=== PATIENT | female | born 1945 | race Caucasian/White ===

== ENCOUNTER 2020-10-16 11:13 | Inpatient (IN) | payer MEDICARE, OTHER ==
[2020-10-16] MEDS ORDERED: DUONEB 0.5-3 MG/3 ml Neb IH ONE ×2 (11:36→11:48)
[2020-10-16] MEDS ORDERED: PULMICORT 0.5 MG/2 ML RESPULES IH STA (11:36)
[2020-10-16] MEDS ORDERED: solu-MEDROL 125 MG IV ONE (11:36)
--- NOTE | 2020-10-16 11:36 | ERPHSYRPT ---
- History of Present Illness Time Seen by Provider: 10/16/20 11:33 Source: patient Exam Limitations: no limitations Patient Subjective Stated Complaint: PT states "[facility] I have COPD and I have been having a hard time breathing for a week. I am coughing, my throat hurts, I did have an incident where draino fumes filled the house and that did not help." Triage Nursing Assessment: Pt presented alert and oriented X 3, skin pwd. Pt tachypniec, diminished lower right lobe, pt has intermittant cough, scant production, able to speak in clear full sentences. Physician History: PT states "[facility]. I have COPD and I have been having a hard time breathing for a week. I am coughing, my throat hurts, I did have an incident where draino fumes filled the house and that did not help." Patient has fever chills shortness of breath for last 2 to 3 weeks has been treated with antibiotic as an outpatient as well as prednisone but without any help. Patient is fully vaccinated with Covid vaccine 2 months ago. Timing/Duration: week(s) Severity of Dyspnea-Max: moderate Severity of Dyspnea-Current: moderate Associated Symptoms: cough, fever, wheezing, weakness, productive cough, No hemoptysis Allergies/Adverse Reactions: No Known Drug Allergies Allergy (Verified 10/16/20 11:25) Home Medications: Albuterol/Ipratropium 3ml Neb* [DUONEB 0.5-3 MG/3 ml Neb] 3 ml IH DAILY 10/16/20 [History] Budesonide/Formoterol Fumarate [Symbicort 80-4.5 Mcg Inhaler] 10.2 gm IH DAILY 10/16/20 [History] Hydrocodone/Acetaminophen [Hydrocodone-Acetamin 10-325 mg] 1 each PO QID PRN 10/16/20 [History] Levothyroxine Sodium [Levothyroxine] 88 mcg PO DAILY 10/16/20 [History] Hx Tetanus, Diphtheria Vaccination/Date Given: Yes Hx Influenza Vaccination/Date Given: Yes Hx Pneumococcal Vaccination/Date Given: Yes Immunizations Up to Date: Yes Travel Risk - International Travel Have you traveled outside of the country in past 3 weeks: No - Coronavirus Screening Are you exhibiting any of the following symptoms?: Yes Symptoms: Cough: New Onset, Shortness of Breath Close contact with a COVID-19 positive Pt in past 14-21 Days: No - Vaccine Status Have you recieved a Covid-19 vaccination: Yes [employer]: Moderna - Vaccination Dates Date of 2cond Vaccination (if applicable): 08/03/2020 - Review of Systems Constitutional: Fever, No Chills Eyes: No Symptoms Ears, Nose, & Throat: No Symptoms Respiratory: Cough, Dyspnea, Dyspnea on Exertion (BOSCH), Wheezing Cardiac: No Chest Pain, No Edema, No Syncope Abdominal/Gastrointestinal: No Abdominal Pain, No Nausea, No Vomiting, No Diarrhea Genitourinary Symptoms: No Dysuria Musculoskeletal: No Back Pain, No Neck Pain Skin: No Rash Neurological: No Dizziness, No Focal Weakness, No Sensory Changes Psychological: No Symptoms Endocrine: No Symptoms All Other Systems: Reviewed and Negative - Past Medical History Pertinent Past Medical History: Yes Neurological History: No Pertinent History ENT History: No Pertinent History Cardiac History: No Pertinent History Respiratory History: COPD Endocrine Medical History: Hypothyroidism Musculoskeletal History: Arthritis GI Medical History: No Pertinent History History: No Pertinent History Psycho-Social History: Anxiety Female Reproductive Disorders: No Pertinent History - Past Surgical History Past Surgical History: Yes Other Surgical History: left hernia. 2 c section - Social History Smoking Status: Former smoker Exposure to second hand smoke: No Drug Use: none Patient Lives Alone: Yes - Female History Hx Now: No - Nursing Vital Signs Nursing Vital Signs: Initial Vital Signs Temperature 98.4 F 10/16/20 11:14 Pulse Rate 112 H 10/16/20 11:14 Respiratory Rate 28 H 10/16/20 11:14 Blood Pressure 218/115 10/16/20 11:14 O2 Sat by Pulse Oximetry 94 L 10/16/20 11:14 Pain Scale Pain Intensity 4 - Physical Exam General Appearance: moderate distress, alert Eye Exam: PERRL/EOMI Neck Exam: normal inspection, supple Respiratory Exam: diminished breath sounds, accessory muscle use, crackles /rales, rhonchi, wheezing Cardiovascular/Chest Exam: normal heart sounds, regular rate/rhythm Abdominal/Gastrointestinal Exam: soft, No tenderness, No distention, No mass Extremity Exam: non-tender, normal range of motion, normal inspection, no calf tenderness, no pedal edema Neurologic Exam: alert, oriented x 3, cooperative, log chipper II-XII nml as tested, sensation nml, No motor deficits Skin Exam: normal color, warm, No dry SpO2 Interpretation: borderline oxygenation SpO2: 94 O2 Delivery: Nasal Cannula - Course Nursing assessment & vital signs reviewed: Yes - Radiology Exams Chest X-ray Interpretation: Reviewed by me Ordered Tests: Active Orders 24 hr Category Date Time Status EKG-ER Only STAT Care 10/16/20 11:36 Active IV Insertion STAT Care 10/16/20 11:36 Active Oxygen-ED Only Nasal Cannula 3 lpm Care 10/16/20 11:36 Active CHEST 2 VIEWS (PA AND LAT) Stat Exams 10/16/20 11:37 Taken ARTERIAL BLOOD GASES Stat Lab 10/16/20 11:55 Completed BLOOD CULTURE Stat Lab 10/16/20 11:50 Received CBC W DIFF Stat Lab 10/16/20 11:50 Completed CMP Stat Lab 10/16/20 11:50 Completed D-DIMER QUANTITATIVE Stat Lab 10/16/20 11:50 Completed Lactic Acid Stat Lab 10/16/20 11:55 Completed MAGNESIUM Stat Lab 10/16/20 11:50 Completed NT PRO BNP Stat Lab 10/16/20 11:50 Completed TROPONIN Stat Lab 10/16/20 11:50 Completed UA W/RFX UR CULTURE Stat Lab 10/16/20 12:37 Completed Respiratory Therapy Assessment DAILY RT 10/16/20 12:04 Active Medication Summary Generic Name Dose Route Start Last Admin Trade Name Freq PRN Reason Stop Dose Admin Sodium Chloride 1,000 mls @ 50 mls/hr 10/16/20 11:45 10/16/20 12:11 Sodium Chloride 0.9% 1000 Ml IV 11/15/20 11:44 50 mls/hr .Q20H YULISSA Administration Discontinued Medications Generic Name Dose Route Start Last Admin Trade Name Freq PRN Reason Stop Dose Admin Albuterol/Ipratropium 3 ml 10/16/20 11:36 10/16/20 12:00 Duoneb 0.5-3 Mg/3 Ml Neb IH 10/16/20 11:37 3 ml STAT ONE Administration Albuterol/Ipratropium Confirm 10/16/20 11:48 Duoneb 0.5-3 Mg/3 Ml Neb Administered 10/16/20 11:49 Dose 3 ml IH .STK-MED ONE Budesonide 0.5 mg 10/16/20 11:36 10/16/20 12:00 Pulmicort 0.5 Mg/2 Ml Respules IH 10/16/20 11:37 0.5 mg 1XONLY STA Administration Methylprednisolone Sodium Succinate 80 mg 10/16/20 11:36 10/16/20 12:10 Solu-Medrol 125 Mg IV 10/16/20 11:37 80 mg STAT ONE Administration Methylprednisolone Sodium Succinate Confirm 10/16/20 12:10 Solu-Medrol 125 Mg Administered 10/16/20 12:11 Dose 125 mg .ROUTE .STK-MED ONE Lab/Rad Data: Laboratory Result Diagrams 10/16/20 11:50 10/16/20 11:50 Laboratory Results 10/16/20 10/16/20 10/16/20 Range/Units 12:37 11:55 11:50 WBC (4.0-10.5) K/mm3 RBC (4.1-5.4) M/mm3 Hgb (12.0-16.0) gm/dl Hct (35-47) % MCV (78-100) fl MCH (26-32) pg MCHC (32-36) g/dl RDW (11.5-14.0) % Plt Count (150-450) K/mm3 MPV (7.5-11.0) fl Gran % (36.0-66.0) % Eos # (Auto) (0-0.5) Absolute Lymphs (auto) (1.0-4.6) Absolute Monos (auto) (0.0-1.3) Lymphocytes % (24.0-44.0) % Monocytes % (0.0-12.0) % Eosinophils % (0.00-5.0) % Basophils % (0.0-0.4) % Absolute Granulocytes (1.4-6.9) Basophils # (0-0.4) D-Dimer 216 (215-500) ng/mL Puncture Site LEFT RADIAL pCO2 33 L (35-45) mmHg pO2 72 L (75-100) mmHg Base Excess 2.9 H (-2.0-2.0) O2 Saturation 94.0 (94-100) g/dF ABG pH 7.50 H (7.35-7.45) ABG HCO3 25.7 (22-28) ABG O2 Sat (Measured) 96.9 (95-100) % Jerel Test YES A-a Gradient 86 a/A Ratio 0.46 Hemoglobin 15.2 Carboxyhemoglobin 1.7 (0.0-6.9) % THgb Methemoglobin 1.3 L (1.4-1.5) % Temperature 37.0 C POC O2 Flow Rate 28 % Sodium (137-145) mmol/L Potassium 3.7 (3.5-5.1) mmol/L Chloride (98-107) mmol/L Carbon Dioxide (22-30) mmol/L Anion Gap (5-15) MEQ/L BUN (7-17) mg/dL Creatinine (0.52-1.04) mg/dL Estimated GFR ML/MIN Glucose (74-106) mg/dL Lactic Acid 0.8 (0.4-2.0) Calcium (8.4-10.2) mg/dL Magnesium (1.6-2.3) mg/dL Total Bilirubin (0.2-1.3) mg/dL AST (14-36) U/L ALT (0-35) U/L Alkaline Phosphatase (38-126) U/L Troponin I (0.000-0.034) ng/mL NT-Pro-B Natriuret Pep (0-1800) pg/mL Serum Total Protein (6.3-8.2) g/dL Albumin (3.5-5.0) g/dL Urine Color STRAW (YELLOW) Urine Appearance CLEAR (CLEAR) Urine pH 7.0 (5-6) Ur Specific [place] 1.005 (1.005-1.025) Urine Protein NEGATIVE (Negative) Urine Ketones TRACE (NEGATIVE) Urine Blood NEGATIVE (0-5) Vinny/ul Urine Nitrite NEGATIVE (NEGATIVE) Urine Bilirubin NEGATIVE (NEGATIVE) Urine Urobilinogen NEGATIVE (0-1) mg/dL Ur Leukocyte Esterase NEGATIVE (NEGATIVE) Urine WBC (Auto) NONE (0-5) /HPF Urine RBC (Auto) NONE (0-2) /HPF U Epithel Cells (Auto) NONE (FEW) /HPF Urine Bacteria (Auto) NONE (NEGATIVE) /HPF Urine Culture Reflexed NO (NO) Urine Glucose NEGATIVE (NEGATIVE) mg/dL 10/16/20 10/16/20 Range/Units 11:50 11:50 WBC 6.9 (4.0-10.5) K/mm3 RBC 4.87 (4.1-5.4) M/mm3 Hgb 14.5 (12.0-16.0) gm/dl Hct 45.2 (35-47) % MCV 92.8 (78-100) fl MCH 29.8 (26-32) pg MCHC 32.1 (32-36) g/dl RDW 13.0 (11.5-14.0) % Plt Count 265 (150-450) K/mm3 MPV 8.8 (7.5-11.0) fl Gran % 62.8 (36.0-66.0) % Eos # (Auto) 0.20 (0-0.5) Absolute Lymphs (auto) 1.79 (1.0-4.6) Absolute Monos (auto) 0.55 (0.0-1.3) Lymphocytes % 26.0 (24.0-44.0) % Monocytes % 8.0 (0.0-12.0) % Eosinophils % 2.9 (0.00-5.0) % Basophils % 0.3 (0.0-0.4) % Absolute Granulocytes 4.32 (1.4-6.9) Basophils # 0.02 (0-0.4) D-Dimer (215-500) ng/mL Puncture Site pCO2 (35-45) mmHg pO2 (75-100) mmHg Base Excess (-2.0-2.0) O2 Saturation (94-100) g/dF ABG pH (7.35-7.45) ABG HCO3 (22-28) ABG O2 Sat (Measured) (95-100) % Jerel Test A-a Gradient a/A Ratio Hemoglobin Carboxyhemoglobin (0.0-6.9) % THgb Methemoglobin (1.4-1.5) % Temperature C POC O2 Flow Rate % Sodium 140 (137-145) mmol/L Potassium 3.8 (3.5-5.1) mmol/L Chloride 102 (98-107) mmol/L Carbon Dioxide 26 (22-30) mmol/L Anion Gap 15.9 H (5-15) MEQ/L BUN 11 (7-17) mg/dL Creatinine 0.54 (0.52-1.04) mg/dL Estimated GFR > 60.0 ML/MIN Glucose 97 (74-106) mg/dL Lactic Acid (0.4-2.0) Calcium 9.7 (8.4-10.2) mg/dL Magnesium 2.1 (1.6-2.3) mg/dL Total Bilirubin 0.40 (0.2-1.3) mg/dL AST 38 H (14-36) U/L ALT 35 (0-35) U/L Alkaline Phosphatase 78 (38-126) U/L Troponin I < 0.012 (0.000-0.034) ng/mL NT-Pro-B Natriuret Pep 123 (0-1800) pg/mL Serum Total Protein 7.1 (6.3-8.2) g/dL Albumin 4.6 (3.5-5.0) g/dL Urine Color (YELLOW) Urine Appearance (CLEAR) Urine pH (5-6) Ur Specific [place] (1.005-1.025) Urine Protein (Negative) Urine Ketones (NEGATIVE) Urine Blood (0-5) Vinny/ul Urine Nitrite (NEGATIVE) Urine Bilirubin (NEGATIVE) Urine Urobilinogen (0-1) mg/dL Ur Leukocyte Esterase (NEGATIVE) Urine WBC (Auto) (0-5) /HPF Urine RBC (Auto) (0-2) /HPF U Epithel Cells (Auto) (FEW) /HPF Urine Bacteria (Auto) (NEGATIVE) /HPF Urine Culture Reflexed (NO) Urine Glucose (NEGATIVE) mg/dL - Progress Progress: re-examined, unchanged Air Movement: fair Blood Culture(s) Obtained: Yes Antibiotics given: Yes Discussed with : Farshad Will see patient in: hospital (observation) Counseled pt/family regarding: lab results, diagnosis, need for follow-up, rad results - Departure Departure Disposition: Observation Clinical Impression: COPD with exacerbation Condition: Fair Critical Care Time: Yes Critical Care Time(excluding separately billable procedures): Critical 30-74 mins Referrals: HANS CABRAL [Primary Care Provider] - Instructions: Chronic Obstructive Pulmonary Disease
[2020-10-16] MEDS ORDERED: PULMICORT 0.5 MG/2 ML RESPULES IH ONE (11:44)
[2020-10-16] MEDS ORDERED: Sodium Chloride 0.9% 1000 ML 1,000 ML IV SCH (11:45)
[2020-10-16] MEDS ORDERED: solu-MEDROL 125 MG ONE (12:10)
[2020-10-16 12:11] LABS: A-aADO2 86; ABG HEMOGLOBIN 15.2; ABG POTASSIUM 3.7 (3.5-5.1); ABG SITE LEFT RADIAL; ALLEN TEST OK? YES; ARTERIAL BLD GAS O2 SATURATION 96.9 % (95-100); ARTERIAL BLOOD GAS BASE EXCESS 2.9 (-2.0-2.0); ARTERIAL BLOOD GAS FIO2 28 %; ARTERIAL BLOOD GAS PCO2 33 mmHg (35-45); ARTERIAL BLOOD GAS PO2 72 mmHg (75-100); CARBOXYHEMOGLOBIN 1.7 % THgb (0.0-6.9); HCO3- 25.7 (22-28); Lactic Acid 0.8 (0.4-2.0); Methhemoglobin 1.3 % (1.4-1.5)
[2020-10-16 12:11] LABS: Absolute Neutrophil Ct (ANC) 4.32 (1.4-6.9); BASOPHIL % 0.3 % (0.0-0.4); Basophil (Absolute #) 0.02 (0-0.4); Eosinophil % 2.9 % (0.00-5.0); Hematocrit 45.2 % (35-47); Hemoglobin 14.5 gm/dl (12.0-16.0); Lymphocyte (Absolute #) 1.79 (1.0-4.6); Mean Cell Volume 92.8 fl (78-100); Mean Corpuscular Hemoglobin 29.8 pg (26-32); Mean Corpuscular Hgb Concent. 32.1 g/dl (32-36); Mean Platelet Volume 8.8 fl (7.5-11.0); Monocyte (Absolute #) 0.55 (0.0-1.3); Neutrophil % 62.8 % (36.0-66.0); Platelet Count 265 K/mm3 (150-450); Red Blood Count 4.87 M/mm3 (4.1-5.4); White Blood Count 6.9 K/mm3 (4.0-10.5)
[2020-10-16 12:30] LABS: ALBUMIN 4.6 g/dL (3.5-5.0); ALKALINE PHOSPHATASE 78 U/L (38-126); ANION GAP 15.9 MEQ/L (5-15); BLOOD UREA NITROGEN 11 mg/dL (7-17); CHLORIDE 102 mmol/L (98-107); Calcium 9.7 mg/dL (8.4-10.2); Carbon Dioxide 26 mmol/L (22-30); Creatinine 1 0.54 mg/dL (0.52-1.04); EST GLOMERULAR FILTRATION RATE > 60.0 ML/MIN; Glucose 97 mg/dL (74-106); MAGNESIUM 2.1 mg/dL (1.6-2.3); NT PRO BNP 123 pg/mL (0-1800); Potassium 3.8 mmol/L (3.5-5.1); SGOT/AST 38 U/L (14-36); SGPT/ALT 35 U/L (0-35); SODIUM 140 mmol/L (137-145); TROPONIN < 0.012 ng/mL (0.000-0.034); Total Protein 7.1 g/dL (6.3-8.2)
[2020-10-16 12:54] LABS: Appearance CLEAR (CLEAR); Bilirubin NEGATIVE (NEGATIVE); Blood NEGATIVE Ery/ul (0-5); Glucose NEGATIVE (NEGATIVE); Ketones TRACE (NEGATIVE); Leukocyte Esterase NEGATIVE (NEGATIVE); Nitrite NEGATIVE (NEGATIVE); Protein,Urine Dip NEGATIVE (Negative); Specific Gravity 1.005 (1.005-1.025); Urobilinogen NEGATIVE mg/dL (0-1)
[2020-10-16] MEDS ORDERED: Levofloxacin 500MG/100ML D5W 500 MG/100 ML BAG IV STA (13:11)
[2020-10-16] MEDS ORDERED: Levofloxacin 500MG/100ML D5W 500 MG/100 ML BAG IV ONE (13:22)
[2020-10-16 14:40] LABS: INFLUENZA A NEGATIVE (NEGATIVE); INFLUENZA B NEGATIVE (NEGATIVE); RESPIRATORY SYNCTIAL VIRUS NEGATIVE (Negative)
[2020-10-16] MEDS ORDERED: TYLENOL 325 MG PO PRN (15:16)
[2020-10-16] MEDS ORDERED: solu-MEDROL 125 MG IV SCH (15:16)
[2020-10-16] MEDS ORDERED: PROVENTIL 2.5 MG/3 ML NEB IH PRN (15:20)
[2020-10-16] MEDS: Sodium Chloride 0.9% 1000 ML 1,000 ML IV SCH ×2 (15:21→21:10)
[2020-10-16] MEDS: HYDROCODONE-CHLORPHEN ER SUSP PO PRN (15:52)
[2020-10-16] MEDS ORDERED: ENOXAPARIN SODIUM SQ ONE (16:10)
[2020-10-16] MEDS: ENOXAPARIN SODIUM SQ SCH (16:11)
[2020-10-16] MEDS ORDERED: PROTONIX 40 MG IV IV ONE (17:03)
[2020-10-16] MEDS: solu-MEDROL 125 MG IV SCH ×2 (17:05→23:58)
[2020-10-16] MEDS: PROTONIX 40 MG IV IV SCH (17:05)
[2020-10-16] MEDS: Advair Hfa 230/21 Mcg COMMON CANISTER IH SCH (17:14)
[2020-10-16] MEDS: PULMICORT 0.5 MG/2 ML RESPULES IH SCH (17:14)
[2020-10-16] MEDS: DUONEB 0.5-3 MG/3 ml Neb IH SCH (17:14)
--- NOTE | 2020-10-16 19:26 | XRAY ---
Indication: Short of breath. Comparison: None PA/lateral chest demonstrates COPD and calcified granulomas. No infiltrate, consolidation, or large effusion. Heart and mediastinal structures within normal limits. Bony thorax intact with mild osteopenia and minimal degenerative changes. Impression: Nonacute chest with chronic features.
[2020-10-16] MEDS: HYDROCODONE-ACETAMIN 10-325 MG PO PRN (21:14)
[2020-10-17] MEDS: DUONEB 0.5-3 MG/3 ml Neb IH SCH ×4 (02:08→19:52)
[2020-10-17 06:07] LABS: Absolute Neutrophil Ct (ANC) 5.25 (1.4-6.9); Basophil (Absolute #) 0 (0-0.4); Eosinophil (Absolute #) 0 (0-0.5); Hemoglobin 13.2 gm/dl (12.0-16.0); Lymphocyte (Absolute #) 0.81 (1.0-4.6); Mean Cell Volume 92.6 fl (78-100); Mean Corpuscular Hemoglobin 29.8 pg (26-32); Mean Corpuscular Hgb Concent. 32.2 g/dl (32-36); Monocyte (Absolute #) 0.17 (0.0-1.3); Monocytes % 2.7 % (0.0-12.0); Neutrophil % 84.3 % (36.0-66.0); Platelet Count 262 K/mm3 (150-450); Red Blood Count 4.43 M/mm3 (4.1-5.4); Red Cell Distribution Width 12.5 % (11.5-14.0); White Blood Count 6.2 K/mm3 (4.0-10.5)
[2020-10-17] MEDS: solu-MEDROL 125 MG IV SCH ×3 (06:17→17:08)
[2020-10-17] MEDS: SYNTHROID 88 MCG PO SCH (06:18)
[2020-10-17 06:22] LABS: BLOOD UREA NITROGEN 14 mg/dL (7-17); CHLORIDE 105 mmol/L (98-107); Calcium 9.3 mg/dL (8.4-10.2); Carbon Dioxide 25 mmol/L (22-30); Creatinine 1 0.45 mg/dL (0.52-1.04); EST GLOMERULAR FILTRATION RATE > 60.0 ML/MIN; Glucose 167 mg/dL (74-106); Potassium 3.8 mmol/L (3.5-5.1); SODIUM 138 mmol/L (137-145)
[2020-10-17] MEDS: Advair Hfa 230/21 Mcg COMMON CANISTER IH SCH ×2 (06:46→19:52)
[2020-10-17] MEDS: PULMICORT 0.5 MG/2 ML RESPULES IH SCH ×2 (06:46→19:52)
[2020-10-17] MEDS: HYDROCODONE-ACETAMIN 10-325 MG PO PRN ×3 (07:12→19:50)
--- NOTE | 2020-10-17 07:38 | PCM.HP ---
History of Present Illness - Chief Complaint Chief Complaint: COPD exacerbation. failed OP treatment History of Present Illness: is a 75 year old female with a history of copd, she has had cough and shortness of breath for the last week, mild sputum production, has been treated as outpatient with no improvement, [facility] to [facility] yesterday and was directed to the ER. - Review of Systems Constitutional: No Fever, No Chills Respiratory: Cough, Short Of Breath, Wheezing Cardiac: No Chest Pain, No Edema, No Syncope Abdominal/Gastrointestinal: No Abdominal Pain, No Nausea, No Vomiting, No Diarrhea All Other Systems: Reviewed and Negative Medications & Allergies Home Medications: Home Medication List Albuterol/Ipratropium 3ml Neb* [DUONEB 0.5-3 MG/3 ml Neb] 3 ml IH DAILY 10/16/20 [History Confirmed 10/16/20] Budesonide/Formoterol Fumarate [Symbicort 80-4.5 Mcg Inhaler] 10.2 gm IH DAILY 10/16/20 [History Confirmed 10/16/20] Hydrocodone/Acetaminophen [Hydrocodone-Acetamin 10-325 mg] 1 each PO QID PRN 10/16/20 [History Confirmed 10/16/20] Levothyroxine Sodium [Levothyroxine] 88 mcg PO DAILY 10/16/20 [History Confirmed 10/16/20] Allergies/Adverse Reactions: Allergies Allergy/AdvReac Type Severity Reaction Status Date / Time No Known Drug Allergies Allergy Verified 10/16/20 11:25 - Past Medical History Past Medical History: Yes Neurological History: No Pertinent History ENT History: No Pertinent History Cardiac History: No Pertinent History Respiratory History: COPD Endocrine Medical History: Hypothyroidism Musculoskelatal History: Arthritis GI Medical History: No Pertinent History History: No Pertinent History Pyscho-Social History: Anxiety Reproductive Disorders: No Pertinent History - Female History Are you now?: No - Past Surgical History Past Surgical History: Yes Other Surgical History: left hernia. 2 c section - Social History Smoking Status: Never smoker Exposure to second hand smoke: No Alcohol: Daily Drug Use: none - Physical Exam Vital Signs: Vital Signs - 24 hr Temp Pulse Resp BP Pulse Ox 10/17/20 06:51 82 16 98 10/17/20 06:50 97.9 F 84 16 158/71 98 10/17/20 03:39 97.8 F 90 18 160/77 96 10/17/20 02:08 80 18 96 10/16/20 23:55 97.8 F 94 H 20 144/67 92 L 10/16/20 19:42 97.8 F 95 H 20 141/65 93 L 10/16/20 17:15 80 20 95 10/16/20 16:44 83 21 133/62 93 L 10/16/20 15:38 84 20 92 L 10/16/20 15:22 98.1 F 88 18 185/95 93 L 10/16/20 15:08 94 H 18 93 L 10/16/20 15:07 98.7 F 75 22 158/72 93 L 10/16/20 14:14 98.0 F 75 22 162/88 96 10/16/20 13:11 94 L 10/16/20 12:21 78 16 171/91 93 L 10/16/20 12:04 80 24 94 L 10/16/20 11:14 98.4 F 112 H 28 H 218/115 93 L Oxygen-Last 24 hours Oxygen Flowrate (L/min)-RT 2 General Appearance: no apparent distress Neurologic Exam: alert, oriented x 3, cooperative Respiratory Exam: diminished breath sounds, wheezing Cardiovascular Exam: regular rate/rhythm, normal heart sounds, normal peripheral pulses Gastrointestinal/Abdomen Exam: soft, normal bowel sounds, No tenderness, No mass Extremity Exam: normal inspection, normal range of motion, pelvis stable Skin Exam: normal color, warm, dry, No rash Results - Labs Lab/Micro Results: Lab Results-Last 24 Hours 10/16/20 10/16/20 10/16/20 Range/Units 11:50 11:50 11:50 WBC 6.9 (4.0-10.5) K/mm3 RBC 4.87 (4.1-5.4) M/mm3 Hgb 14.5 (12.0-16.0) gm/dl Hct 45.2 (35-47) % MCV 92.8 (78-100) fl MCH 29.8 (26-32) pg MCHC 32.1 (32-36) g/dl RDW 13.0 (11.5-14.0) % Plt Count 265 (150-450) K/mm3 MPV 8.8 (7.5-11.0) fl Gran % 62.8 (36.0-66.0) % Eos # (Auto) 0.20 (0-0.5) Absolute Lymphs (auto) 1.79 (1.0-4.6) Absolute Monos (auto) 0.55 (0.0-1.3) Lymphocytes % 26.0 (24.0-44.0) % Monocytes % 8.0 (0.0-12.0) % Eosinophils % 2.9 (0.00-5.0) % Basophils % 0.3 (0.0-0.4) % Absolute Granulocytes 4.32 (1.4-6.9) Basophils # 0.02 (0-0.4) D-Dimer 216 (215-500) ng/mL Puncture Site pCO2 (35-45) mmHg pO2 (75-100) mmHg Base Excess (-2.0-2.0) O2 Saturation (94-100) g/dF ABG pH (7.35-7.45) ABG HCO3 (22-28) ABG O2 Sat (Measured) (95-100) % Jerel Test A-a Gradient a/A Ratio Hemoglobin Carboxyhemoglobin (0.0-6.9) % THgb Methemoglobin (1.4-1.5) % Temperature C POC O2 Flow Rate % Sodium 140 (137-145) mmol/L Potassium 3.8 (3.5-5.1) mmol/L Chloride 102 (98-107) mmol/L Carbon Dioxide 26 (22-30) mmol/L Anion Gap 15.9 H (5-15) MEQ/L BUN 11 (7-17) mg/dL Creatinine 0.54 (0.52-1.04) mg/dL Estimated GFR > 60.0 ML/MIN Glucose 97 (74-106) mg/dL Lactic Acid (0.4-2.0) Calcium 9.7 (8.4-10.2) mg/dL Magnesium 2.1 (1.6-2.3) mg/dL Total Bilirubin 0.40 (0.2-1.3) mg/dL AST 38 H (14-36) U/L ALT 35 (0-35) U/L Alkaline Phosphatase 78 (38-126) U/L Troponin I < 0.012 (0.000-0.034) ng/mL NT-Pro-B Natriuret Pep 123 (0-1800) pg/mL Serum Total Protein 7.1 (6.3-8.2) g/dL Albumin 4.6 (3.5-5.0) g/dL Urine Color (YELLOW) Urine Appearance (CLEAR) Urine pH (5-6) Ur Specific [place] (1.005-1.025) Urine Protein (Negative) Urine Ketones (NEGATIVE) Urine Blood (0-5) Vinny/ul Urine Nitrite (NEGATIVE) Urine Bilirubin (NEGATIVE) Urine Urobilinogen (0-1) mg/dL Ur Leukocyte Esterase (NEGATIVE) Urine WBC (Auto) (0-5) /HPF Urine RBC (Auto) (0-2) /HPF U Epithel Cells (Auto) (FEW) /HPF Urine Bacteria (Auto) (NEGATIVE) /HPF Urine Culture Reflexed (NO) Urine Glucose (NEGATIVE) mg/dL Influenza Type A Ag (NEGATIVE) Influenza Type B Ag (NEGATIVE) RSV (PCR) (Negative) SARS-CoV-2 (PCR) (NEGATIVE) 10/16/20 10/16/20 10/16/20 Range/Units 11:55 12:37 14:00 WBC (4.0-10.5) K/mm3 RBC (4.1-5.4) M/mm3 Hgb (12.0-16.0) gm/dl Hct (35-47) % MCV (78-100) fl MCH (26-32) pg MCHC (32-36) g/dl RDW (11.5-14.0) % Plt Count (150-450) K/mm3 MPV (7.5-11.0) fl Gran % (36.0-66.0) % Eos # (Auto) (0-0.5) Absolute Lymphs (auto) (1.0-4.6) Absolute Monos (auto) (0.0-1.3) Lymphocytes % (24.0-44.0) % Monocytes % (0.0-12.0) % Eosinophils % (0.00-5.0) % Basophils % (0.0-0.4) % Absolute Granulocytes (1.4-6.9) Basophils # (0-0.4) D-Dimer (215-500) ng/mL Puncture Site LEFT RADIAL pCO2 33 L (35-45) mmHg pO2 72 L (75-100) mmHg Base Excess 2.9 H (-2.0-2.0) O2 Saturation 94.0 (94-100) g/dF ABG pH 7.50 H (7.35-7.45) ABG HCO3 25.7 (22-28) ABG O2 Sat (Measured) 96.9 (95-100) % Jerel Test YES A-a Gradient 86 a/A Ratio 0.46 Hemoglobin 15.2 Carboxyhemoglobin 1.7 (0.0-6.9) % THgb Methemoglobin 1.3 L (1.4-1.5) % Temperature 37.0 C POC O2 Flow Rate 28 % Sodium (137-145) mmol/L Potassium 3.7 (3.5-5.1) mmol/L Chloride (98-107) mmol/L Carbon Dioxide (22-30) mmol/L Anion Gap (5-15) MEQ/L BUN (7-17) mg/dL Creatinine (0.52-1.04) mg/dL Estimated GFR ML/MIN Glucose (74-106) mg/dL Lactic Acid 0.8 (0.4-2.0) Calcium (8.4-10.2) mg/dL Magnesium (1.6-2.3) mg/dL Total Bilirubin (0.2-1.3) mg/dL AST (14-36) U/L ALT (0-35) U/L Alkaline Phosphatase (38-126) U/L Troponin I (0.000-0.034) ng/mL NT-Pro-B Natriuret Pep (0-1800) pg/mL Serum Total Protein (6.3-8.2) g/dL Albumin (3.5-5.0) g/dL Urine Color STRAW (YELLOW) Urine Appearance CLEAR (CLEAR) Urine pH 7.0 (5-6) Ur Specific [place] 1.005 (1.005-1.025) Urine Protein NEGATIVE (Negative) Urine Ketones TRACE (NEGATIVE) Urine Blood NEGATIVE (0-5) Vinny/ul Urine Nitrite NEGATIVE (NEGATIVE) Urine Bilirubin NEGATIVE (NEGATIVE) Urine Urobilinogen NEGATIVE (0-1) mg/dL Ur Leukocyte Esterase NEGATIVE (NEGATIVE) Urine WBC (Auto) NONE (0-5) /HPF Urine RBC (Auto) NONE (0-2) /HPF U Epithel Cells (Auto) NONE (FEW) /HPF Urine Bacteria (Auto) NONE (NEGATIVE) /HPF Urine Culture Reflexed NO (NO) Urine Glucose NEGATIVE (NEGATIVE) mg/dL Influenza Type A Ag NEGATIVE (NEGATIVE) Influenza Type B Ag NEGATIVE (NEGATIVE) RSV (PCR) NEGATIVE (Negative) SARS-CoV-2 (PCR) NEGATIVE (NEGATIVE) 10/17/20 10/17/20 Range/Units 05:40 05:40 WBC 6.2 (4.0-10.5) K/mm3 RBC 4.43 (4.1-5.4) M/mm3 Hgb 13.2 (12.0-16.0) gm/dl Hct 41.0 (35-47) % MCV 92.6 (78-100) fl MCH 29.8 (26-32) pg MCHC 32.2 (32-36) g/dl RDW 12.5 (11.5-14.0) % Plt Count 262 (150-450) K/mm3 MPV 9.0 (7.5-11.0) fl Gran % 84.3 H (36.0-66.0) % Eos # (Auto) 0 (0-0.5) Absolute Lymphs (auto) 0.81 L (1.0-4.6) Absolute Monos (auto) 0.17 (0.0-1.3) Lymphocytes % 13.0 L (24.0-44.0) % Monocytes % 2.7 (0.0-12.0) % Eosinophils % 0.0 (0.00-5.0) % Basophils % 0.0 (0.0-0.4) % Absolute Granulocytes 5.25 (1.4-6.9) Basophils # 0 (0-0.4) D-Dimer (215-500) ng/mL Puncture Site pCO2 (35-45) mmHg pO2 (75-100) mmHg Base Excess (-2.0-2.0) O2 Saturation (94-100) g/dF ABG pH (7.35-7.45) ABG HCO3 (22-28) ABG O2 Sat (Measured) (95-100) % Jerel Test A-a Gradient a/A Ratio Hemoglobin Carboxyhemoglobin (0.0-6.9) % THgb Methemoglobin (1.4-1.5) % Temperature C POC O2 Flow Rate % Sodium 138 (137-145) mmol/L Potassium 3.8 (3.5-5.1) mmol/L Chloride 105 (98-107) mmol/L Carbon Dioxide 25 (22-30) mmol/L Anion Gap 12.0 (5-15) MEQ/L BUN 14 (7-17) mg/dL Creatinine 0.45 L (0.52-1.04) mg/dL Estimated GFR > 60.0 ML/MIN Glucose 167 H (74-106) mg/dL Lactic Acid (0.4-2.0) Calcium 9.3 (8.4-10.2) mg/dL Magnesium (1.6-2.3) mg/dL Total Bilirubin (0.2-1.3) mg/dL AST (14-36) U/L ALT (0-35) U/L Alkaline Phosphatase (38-126) U/L Troponin I (0.000-0.034) ng/mL NT-Pro-B Natriuret Pep (0-1800) pg/mL Serum Total Protein (6.3-8.2) g/dL Albumin (3.5-5.0) g/dL Urine Color (YELLOW) Urine Appearance (CLEAR) Urine pH (5-6) Ur Specific [place] (1.005-1.025) Urine Protein (Negative) Urine Ketones (NEGATIVE) Urine Blood (0-5) Vinny/ul Urine Nitrite (NEGATIVE) Urine Bilirubin (NEGATIVE) Urine Urobilinogen (0-1) mg/dL Ur Leukocyte Esterase (NEGATIVE) Urine WBC (Auto) (0-5) /HPF Urine RBC (Auto) (0-2) /HPF U Epithel Cells (Auto) (FEW) /HPF Urine Bacteria (Auto) (NEGATIVE) /HPF Urine Culture Reflexed (NO) Urine Glucose (NEGATIVE) mg/dL Influenza Type A Ag (NEGATIVE) Influenza Type B Ag (NEGATIVE) RSV (PCR) (Negative) SARS-CoV-2 (PCR) (NEGATIVE) - Radiology Impressions Radiology Exams & Impressions: Radiology Procedures Category Date Time Status CHEST 2 VIEWS (PA AND LAT) Stat Exams 10/16/20 11:37 Completed - Other Procedures and Tests Respiratory Therapy 10/16/20 12:04 Respiratory Therapy Assessment DAILY 10/16/20 15:16 Oxygen Oxymizer LPM 3 lpm Assessment/Plan (1) COPD with exacerbation Current Visit: Yes Status: Acute Assessment & Plan: on levaquin, IV solu medrol and nebs. lovenox is ordered for dvt prophylaxis Code(s): J44.1 - CHRONIC OBSTRUCTIVE PULMONARY DISEASE W (ACUTE) EXACERBATION
[2020-10-17] MEDS: MOTRIN 600 MG PO PRN ×2 (08:17→17:42)
[2020-10-17] MEDS: HYDROCODONE-CHLORPHEN ER SUSP PO PRN ×2 (08:18→21:35)
[2020-10-17] MEDS: PROTONIX 40 MG IV IV SCH (09:23)
[2020-10-17] MEDS: Levofloxacin 500MG/100ML D5W 500 MG/100 ML BAG IV SCH (09:23)
[2020-10-17] MEDS: Sodium Chloride 0.9% 1000 ML 1,000 ML IV SCH ×3 (13:32→17:49)
[2020-10-17] MEDS: CLARITIN 10 MG PO SCH (13:53)
[2020-10-17] MEDS: ENOXAPARIN SODIUM SQ SCH (15:58)
[2020-10-17] MEDS: Ambien 5 MG Tablet PO PRN (22:00)
[2020-10-18] MEDS: solu-MEDROL 125 MG IV SCH ×4 (00:03→17:17)
[2020-10-18] MEDS: DUONEB 0.5-3 MG/3 ml Neb IH SCH ×4 (01:31→17:30)
[2020-10-18] MEDS: Sodium Chloride 0.9% 1000 ML 1,000 ML IV SCH ×3 (02:50→20:45)
[2020-10-18] MEDS: SYNTHROID 88 MCG PO SCH (06:00)
[2020-10-18 06:08] LABS: Absolute Neutrophil Ct (ANC) 14.31 (1.4-6.9); BASOPHIL % 0.1 % (0.0-0.4); Basophil (Absolute #) 0.01 (0-0.4); Eosinophil % 0.1 % (0.00-5.0); Eosinophil (Absolute #) 0.01 (0-0.5); Hemoglobin 12.6 gm/dl (12.0-16.0); Lymphocyte (Absolute #) 1.07 (1.0-4.6); Lymphocytes % 6.8 % (24.0-44.0); Mean Cell Volume 94.3 fl (78-100); Mean Corpuscular Hemoglobin 29.7 pg (26-32); Mean Corpuscular Hgb Concent. 31.5 g/dl (32-36); Mean Platelet Volume 8.9 fl (7.5-11.0); Monocyte (Absolute #) 0.44 (0.0-1.3); Monocytes % 2.8 % (0.0-12.0); Neutrophil % 90.2 % (36.0-66.0); Platelet Count 285 K/mm3 (150-450); Red Blood Count 4.24 M/mm3 (4.1-5.4); Red Cell Distribution Width 12.8 % (11.5-14.0); White Blood Count 15.8 K/mm3 (4.0-10.5)
[2020-10-18] MEDS: Advair Hfa 230/21 Mcg COMMON CANISTER IH SCH ×2 (06:25→17:34)
[2020-10-18] MEDS: PULMICORT 0.5 MG/2 ML RESPULES IH SCH (06:28)
[2020-10-18 07:00] LABS: ANION GAP 9.9 MEQ/L (5-15); BLOOD UREA NITROGEN 15 mg/dL (7-17); CHLORIDE 109 mmol/L (98-107); Calcium 8.9 mg/dL (8.4-10.2); Carbon Dioxide 25 mmol/L (22-30); Creatinine 1 0.51 mg/dL (0.52-1.04); EST GLOMERULAR FILTRATION RATE > 60.0 ML/MIN; Glucose 150 mg/dL (74-106); Potassium 3.7 mmol/L (3.5-5.1); SODIUM 140 mmol/L (137-145)
[2020-10-18] MEDS: HYDROCODONE-ACETAMIN 10-325 MG PO PRN ×3 (07:45→22:28)
[2020-10-18] MEDS: MOTRIN 600 MG PO PRN ×3 (07:45→16:35)
--- NOTE | 2020-10-18 08:33 | PCM.NOTE ---
Date and Time: 10/18/20828 Subjective Assessment: Pt feeling better, slept last night with ambien (typically unable to sleep with steroid). Matthew po well. Urinating and stooling well. Objective Exam General Appearance: no apparent distress, alert Neurologic Exam: oriented x 3, cooperative Skin Exam: normal color, warm, dry, No rash Respiratory Exam: diminished breath sounds (fair air exchange), prolonged expirations, wheezing (faint, scattered), other (oxymask in place), No crackles/rales, No rhonchi Cardiovascular Exam: regular rate/rhythm, normal heart sounds, No murmur Extremity Exam: No pedal edema, No swelling Back Exam: normal inspection, No rash OBJECTIVE DATA Vital Signs: Vital Signs - 24 hr Temp Pulse Resp BP Pulse Ox 10/18/20 08:00 96.9 F 93 H 16 163/86 92 L 10/18/20 06:26 89 22 93 L 10/18/20 04:00 98.3 F 99 H 20 157/81 92 L 10/17/20 23:59 88 93 L 10/17/20 19:55 98.0 F 89 16 157/75 95 10/17/20 19:52 97 H 16 90 L 10/17/20 16:00 98.0 F 89 16 157/75 95 10/17/20 13:03 102 H 18 94 L 10/17/20 12:00 98.6 F 102 H 18 174/79 94 L 10/17/20 09:20 91 L Oxygen-Last 24 hours Oxygen Flowrate (L/min)-RT 2 Pain Assessment - Last Documented Pain Intensity 10 Pain Scale Used 0-10 Pain Scale Intake and Output: Intake & Output 10/15/20 10/16/20 10/17/20 10/18/20 11:59 11:59 11:59 11:59 Intake Total 1940 3681 Balance 1940 3681 Weight 49.895 kg 48.7 kg 56.7 kg Lab Results: Lab Results-Last 24 Hours 10/18/20 10/18/20 Range/Units 05:48 05:48 WBC 15.8 H (4.0-10.5) K/mm3 RBC 4.24 (4.1-5.4) M/mm3 Hgb 12.6 (12.0-16.0) gm/dl Hct 40.0 (35-47) % MCV 94.3 (78-100) fl MCH 29.7 (26-32) pg MCHC 31.5 L (32-36) g/dl RDW 12.8 (11.5-14.0) % Plt Count 285 (150-450) K/mm3 MPV 8.9 (7.5-11.0) fl Gran % 90.2 H (36.0-66.0) % Eos # (Auto) 0.01 (0-0.5) Absolute Lymphs (auto) 1.07 (1.0-4.6) Absolute Monos (auto) 0.44 (0.0-1.3) Lymphocytes % 6.8 L (24.0-44.0) % Monocytes % 2.8 (0.0-12.0) % Eosinophils % 0.1 (0.00-5.0) % Basophils % 0.1 (0.0-0.4) % Absolute Granulocytes 14.31 H (1.4-6.9) Basophils # 0.01 (0-0.4) Sodium 140 (137-145) mmol/L Potassium 3.7 (3.5-5.1) mmol/L Chloride 109 H (98-107) mmol/L Carbon Dioxide 25 (22-30) mmol/L Anion Gap 9.9 (5-15) MEQ/L BUN 15 (7-17) mg/dL Creatinine 0.51 L (0.52-1.04) mg/dL Estimated GFR > 60.0 ML/MIN Glucose 150 H (74-106) mg/dL Calcium 8.9 (8.4-10.2) mg/dL Radiology Exams: Radiology Procedures Category Date Time Status CHEST 2 VIEWS (PA AND LAT) Stat Exams 10/16/20 11:37 Completed Assessment/Plan (1) COPD with exacerbation Current Visit: Yes Status: Acute Assessment & Plan: Likely here a couple more days. Improved subjectively. Still on O2 (not on home O2 prior to admission). On levaquin day #2 and solumedrol 80mg IV q6h. Will decrease solumedrol somewhat and see how she tolerates that. Wean O2 as tolerated. Will need to go home on duonebs. 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 Code(s): G47.00 - INSOMNIA, UNSPECIFIED (3) DVT prophylaxis Current Visit: Yes Status: Acute Assessment & Plan: lovenox 40mg SQ daily Code(s): Z29.9 - ENCOUNTER FOR PROPHYLACTIC MEASURES, UNSPECIFIED (4) Fluids/electrolyte/nutrition Current Visit: Yes Status: Acute Assessment & Plan: Matthew po well.
[2020-10-18] MEDS: CLARITIN 10 MG PO SCH (09:10)
[2020-10-18] MEDS: Levofloxacin 500MG/100ML D5W 500 MG/100 ML BAG IV SCH (09:11)
[2020-10-18] MEDS: PROTONIX 40 MG IV IV SCH (09:11)
[2020-10-18] MEDS: HYDROCODONE-CHLORPHEN ER SUSP PO PRN (11:27)
[2020-10-18] MEDS: ENOXAPARIN SODIUM SQ SCH (15:18)
[2020-10-19] MEDS: DUONEB 0.5-3 MG/3 ml Neb IH SCH ×4 (00:08→19:50)
[2020-10-19] MEDS: solu-MEDROL 125 MG IV SCH ×4 (00:09→22:49)
[2020-10-19] MEDS: Ambien 5 MG Tablet PO PRN (00:10)
[2020-10-19] MEDS: SYNTHROID 88 MCG PO SCH (06:31)
[2020-10-19] MEDS: Sodium Chloride 0.9% 1000 ML 1,000 ML IV SCH (06:34)
[2020-10-19] MEDS: HYDROCODONE-ACETAMIN 10-325 MG PO PRN ×3 (08:20→22:49)
[2020-10-19] MEDS: Advair Hfa 230/21 Mcg COMMON CANISTER IH SCH ×2 (08:40→19:51)
--- NOTE | 2020-10-19 08:42 | PCM.NOTE ---
Date and Time: 10/19/20836 Subjective Assessment: Pt is feeling better. Hopes she can go home tomorrow. ynes po. Only slept about 4h with the ambien last night. - Review of Systems Constitutional: No Fever Respiratory: Cough, Short Of Breath Objective Exam General Appearance: no apparent distress, alert Neurologic Exam: oriented x 3, cooperative Skin Exam: normal color, warm, dry, No rash Eye Exam: eyes nml inspection Ears, Nose, Throat Exam: moist mucous membranes Neck Exam: normal inspection Respiratory Exam: lungs clear, diminished breath sounds (fair air exchange), No crackles/rales, No rhonchi, No wheezing Cardiovascular Exam: regular rate/rhythm, normal heart sounds, No murmur Gastrointestinal/Abdomen Exam: soft, normal bowel sounds, No tenderness, No distention, No mass, No guarding, No rebound Extremity Exam: normal inspection, No pedal edema, No swelling Back Exam: normal inspection, No rash OBJECTIVE DATA Vital Signs: Vital Signs - 24 hr Temp Pulse Resp BP Pulse Ox 10/19/20 07:31 98.5 F 84 18 171/81 93 L 10/19/20 06:35 94 L 10/19/20 04:00 76 94 L 10/19/20 00:11 88 18 92 L 10/19/20 00:00 97.9 F 94 H 22 150/82 93 L 10/18/20 19:57 97.7 F 93 H 20 148/70 92 L 10/18/20 17:34 90 20 92 L 10/18/20 15:48 97.9 F 101 H 22 159/78 94 L 10/18/20 12:44 98.7 F 102 H 15 143/85 91 L 10/18/20 12:36 92 H 20 92 L 10/18/20 12:00 98.7 F 93 H 14 143/85 92 L Oxygen-Last 24 hours Oxygen Flowrate (L/min)-RT 2 Pain Assessment - Last Documented Pain Intensity 3 Pain Scale Used 0-10 Pain Scale Intake and Output: Intake & Output 10/16/20 10/17/20 10/18/20 10/19/20 11:59 11:59 11:59 11:59 Intake Total 1940 4161 4620 Balance 1940 4161 4601 Weight 49.895 kg 48.7 kg 56.7 kg Assessment/Plan (1) COPD with exacerbation Current Visit: Yes Status: Acute Assessment & Plan: Doing better. Will decrease steroid today in hopes pt may go home tomorrow; however she is currently still on O2 - was off briefly yesterday. Pt reluctant to go home on O2. 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 Code(s): G47.00 - INSOMNIA, UNSPECIFIED (3) DVT prophylaxis Current Visit: Yes Status: Acute Assessment & Plan: on lovenox 40mg/d Code(s): Z29.9 - ENCOUNTER FOR PROPHYLACTIC MEASURES, UNSPECIFIED (4) Fluids/electrolyte/nutrition Current Visit: Yes Status: Acute Assessment & Plan: Ynes po well so heplock IV today (was running at 100mL/hr).
[2020-10-19] MEDS: PROTONIX 40 MG IV IV SCH (09:23)
[2020-10-19] MEDS: Levofloxacin 500MG/100ML D5W 500 MG/100 ML BAG IV SCH (09:28)
[2020-10-19] MEDS: CLARITIN 10 MG PO SCH (09:31)
[2020-10-19] MEDS: Apresoline 25 MG TABLET PO PRN ×2 (14:33→23:02)
[2020-10-19] MEDS ORDERED: Ativan 2 MG/1 ML VIAL IV ONE (15:14)
[2020-10-19] MEDS: ENOXAPARIN SODIUM SQ SCH (16:08)
[2020-10-19] MEDS: HYDROCODONE-CHLORPHEN ER SUSP PO PRN (20:20)
[2020-10-20] MEDS ORDERED: TRANDATE 20 MG/4 ML SYRINGE IV ONE (00:19)
[2020-10-20] MEDS: Ambien 5 MG Tablet PO PRN (01:30)
[2020-10-20] MEDS: DUONEB 0.5-3 MG/3 ml Neb IH SCH ×3 (01:38→12:57)
[2020-10-20] MEDS: Advair Hfa 230/21 Mcg COMMON CANISTER IH SCH (07:30)
[2020-10-20] MEDS: HYDROCODONE-ACETAMIN 10-325 MG PO PRN ×2 (07:39→12:14)
[2020-10-20] MEDS: SYNTHROID 88 MCG PO SCH (07:39)
[2020-10-20] MEDS: Levofloxacin 500MG/100ML D5W 500 MG/100 ML BAG IV SCH (09:43)
[2020-10-20] MEDS: solu-MEDROL 125 MG IV SCH (09:43)
[2020-10-20] MEDS: CLARITIN 10 MG PO SCH (09:44)
[2020-10-20] MEDS: PROTONIX 40 MG IV IV SCH (09:44)
[2020-10-20 12:02] VITALS: BP 173/81
--- NOTE | 2020-10-20 12:50 | PCM.DS ---
Discharge Summary Date of Admission: 10/17/20 07:36 Admitting Physician: ZULEIKA LUCIO Primary Care Provider: HANS CABRAL Allergies Allergies No Known Drug Allergies Allergy (Verified 10/16/20 11:25) Hospital Summary - Vitals & Intake/Output Vital Signs: Vital Signs Temperature 98.0 F 10/20/20 12:00 Pulse Rate 80 10/20/20 12:00 Respiratory Rate 16 10/20/20 12:00 Blood Pressure 173/81 10/20/20 12:00 O2 Sat by Pulse Oximetry 95 10/20/20 12:00 Intake & Output: Intake & Output 10/18/20 10/19/20 10/20/20 10/21/20 11:59 11:59 11:59 11:59 Intake Total 4161 5025 2880 Balance 4161 5025 2880 Weight 56.7 kg 53.6 kg - Lab Result Diagrams: 10/18/20 05:48 10/18/20 05:48 Micro Results-Entire Visit: Microbiology 10/16/20 11:50 Blood Culture - Preliminary Blood NO GROWTH TO DATE 10/16/20 11:56 Blood Culture - Preliminary Blood NO GROWTH TO DATE - Procedures and Test Procedures and Tests throughout Hospitalization: Therapy Orders & Screens 10/16/20 12:04 Respiratory Therapy Assessment DAILY Comment: 10/16/20 15:16 Oxygen Oxymizer LPM 3 lpm Comment: - Discharge Disposition: Home, Self-Care Condition: Fair Prescriptions: New Hydrocodone/Acetaminophen [Hydrocodone-Acetamin 5-325 mg] 1 each PO Q6HPRN PRN #1 tablet MDD 4 PRN Reason: Pain Hydrocodone/Acetaminophen [Hydrocodone-Acetamin 5-325 mg] 1 each PO Q6HPRN PRN #1 tablet MDD 4 PRN Reason: Pain Hydrocodone/Acetaminophen [Hydrocodone-Acetamin 5-300 mg] 1 each PO Q6H PRN #1 tablet MDD 1 PRN Reason: Pain Prednisone 10 mg [Deltasone 10 mg] 10 mg PO DAILY 18 Days #57 tablet Ipratropium/Albuterol Sulfate [Iprat-Albut 0.5-3(2.5) mg/3 ml] 3 ml IH Q6H PRN PRN #20 ampul.neb PRN Reason: Shortness Of Breath/Wheezing Levofloxacin [Levaquin] 500 mg PO DAILY 5 Days #5 tablet Guaifenesin/Dextromethorphan [Mucinex Dm ER 1,200-60 mg Tab] 1 each PO BID 5 Days #10 tab.er.12h Montelukast Sodium 10 mg [Singulair 10 MG] 10 mg PO DAILY #30 tablet Lisinopril 20 mg [Zestril 20 MG] 20 mg PO DAILY #30 tablet Continue Hydrocodone/Acetaminophen [Hydrocodone-Acetamin 10-325 mg] 1 each PO QID PRN PRN Reason: Pain Levothyroxine Sodium [Levothyroxine] 88 mcg PO DAILY Budesonide/Formoterol Fumarate [Symbicort 80-4.5 Mcg Inhaler] 10.2 gm IH DAILY Albuterol/Ipratropium 3ml Neb* [DUONEB 0.5-3 MG/3 ml Neb] 3 ml IH DAILY Instructions: Oxygen Therapy, Adult (DC) Additional Instructions: WEAR 2L/NC AT ALL TIMES, CALL [facility] AT [phone] WHEN YOU GET HOME SO THEY CAN DELIVER YOUR HOME OXYGEN CONCENTRATOR Follow up with: HANS CABRAL [Primary Care Provider] -
[2020-10-20] MEDS: HYDROCODONE-CHLORPHEN ER SUSP PO PRN (12:51)
[2020-10-20 13:02] VITALS: PULSE 107; O2SAT 92
== END 2020-10-20 14:25 | disposition home or self-care (01) | DRG 192 ==
LOC: ED 11:13 → UNDOADMOB 15:15 → MED SURG 15:15 → OBSVTOIN 10-17 07:36 → MED SURG 10-17 07:36 → INTOOBSV 10-17 07:36 → OBSVTOIN 10-18 07:36 → MED SURG 10-18 07:36 → INTOOBSV 10-18 07:36 → UNDOADMOB 10-18 07:36
PROVIDERS: ADMIT Family Medicine; ATTEND Family Medicine
DX: J44.1 Chronic obstructive pulmonary disease with (acute) exacerbation (principal); Z79.899 Other long term (current) drug therapy; E03.9 Hypothyroidism, unspecified; G47.00 Insomnia, unspecified; Z20.828 Contact with and (suspected) exposure to other viral communicable diseases
CPT/HCPCS: 0241U; 36000; 36415; 36600; 71046; 80048; 80053; 81001; 82375; 82803; 83605; 83735; 83880; 84484; 85025; 85379; 87040; 93005; 93268; 94640; 94760; 94762; 96365; 96374; 99285; 99291; G0378; J1650; J1956; J2060; J2930; A9270-GY

== ENCOUNTER 2021-05-04 10:11 | Day surgery (SDC) | payer MEDICARE, OTHER ==
[2021-05-04] MEDS ORDERED: Depo-Medrol 40 MG/ML IM ONE (10:12)
[2021-05-04] MEDS ORDERED: BUPIVACAINE 0.5% VIAL IJ ONE (10:12)
[2021-05-04] MEDS ORDERED: Xylocaine 1% Vial 30 ML PF IJ ONE (10:12)
--- NOTE | 2021-05-04 13:40 | XRAY ---
18 seconds fluoroscopy time in surgery for intra-articular and sub-trochanteric injections of the right shoulder.
--- NOTE | 2021-05-04 13:40 | XRAY ---
Indication: Right shoulder and subacromial injections. Intraoperative fluoroscopy provided for 18 seconds. 3 digital spot image submitted for interpretation demonstrates needle tip projecting over the right glenohumeral joint superiorly. Second needle tip is subacromial. Small amount of contrast injected for both needle tip placement. Correlate with intraoperative findings/report.
== END 2021-05-04 12:25 | disposition home or self-care (01) ==
LOC: SDC-PAIN 10:11
PROVIDERS: ATTEND Psychiatry & Neurology Pain Medicine
DX: M19.011 Primary osteoarthritis, right shoulder (principal); J44.9 Chronic obstructive pulmonary disease, unspecified; E03.9 Hypothyroidism, unspecified; Z79.899 Other long term (current) drug therapy
CPT/HCPCS: 20610; 73030; 77002; J1030; J2001; Q9966

== ENCOUNTER 2022-05-03 10:24 | Day surgery (SDC) | payer MEDICARE, OTHER ==
[2022-05-03] MEDS ORDERED: Depo-Medrol 40 MG/ML IM ONE (10:25)
[2022-05-03] MEDS ORDERED: LIDOCAINE HCL 2% 100 MG/5 ML IJ ONE (10:25)
[2022-05-03] MEDS ORDERED: Versed 2 MG/2 ML Injection ONE (11:41)
[2022-05-03] MEDS ORDERED: DIPRIVAN 200 MG/20 ML IV ONE (12:54)
[2022-05-03] MEDS ORDERED: Xylocaine-Mpf 2% 5 Ml Vial ONE (12:54)
[2022-05-03] MEDS ORDERED: Lactated Ringers 1,000 ML IV ONE (13:03)
--- NOTE | 2022-05-03 19:23 | XRAY ---
Indication: Bilateral L4-S1 MBB. Intraoperative fluoroscopy provided for 17 seconds. Single digital spot submitted for interpretation demonstrates posterior needle tips projecting over the expected left and right L4-S1 nerve roots. Correlate with intraoperative findings/report.
--- NOTE | 2022-05-03 20:02 | XRAY ---
17 seconds of fluoroscopy was used in surgery for a bilateral L4-S1 MBB.
== END 2022-05-03 13:20 | disposition home or self-care (01) ==
LOC: SDC-PAIN 10:24
PROVIDERS: ATTEND Psychiatry & Neurology Pain Medicine
DX: M47.816 Spondylosis without myelopathy or radiculopathy, lumbar region (principal); Z79.899 Other long term (current) drug therapy
CPT/HCPCS: 64493; 64494; 72020; 77002; J1030; J2250; J2704

== ENCOUNTER 2022-05-18 07:48 | Day surgery (SDC) | payer MEDICARE, OTHER ==
[2022-05-18] MEDS ORDERED: LIDOCAINE HCL 1% 50 MG/5 ML VL PF IJ ONE (07:49)
[2022-05-18] MEDS ORDERED: BUPIVACAINE 0.5% VIAL IJ ONE (07:49)
[2022-05-18] MEDS ORDERED: Depo-Medrol 40 MG/ML IM ONE (07:49)
[2022-05-18] MEDS ORDERED: APRESOLINE 20 MG/ML INJ ONE (09:23)
[2022-05-18] MEDS ORDERED: TRANDATE 20 MG/4 ML SYRINGE IV ONE (09:41)
--- NOTE | 2022-05-18 09:49 | XRAY ---
1 minute and 20 seconds fluoroscopy time in surgery for bilateral L4-S1 RFA.
--- NOTE | 2022-05-18 09:59 | XRAY ---
Indication: Bilateral L4-S1 RFA. Intraoperative fluoroscopy provided for 1 minute 2 seconds. 6 digital spot images submitted for interpretation demonstrates posterior needle tips projecting over the expected left and right L4-S1 nerve roots. Correlate with intraoperative findings/report.
[2022-05-18] MEDS ORDERED: Lactated Ringers 1,000 ML IV ONE (10:29)
== END 2022-05-18 10:05 | disposition home or self-care (01) ==
LOC: SDC-PAIN 07:48
PROVIDERS: ATTEND Psychiatry & Neurology Pain Medicine
DX: M47.816 Spondylosis without myelopathy or radiculopathy, lumbar region (principal); Z79.899 Other long term (current) drug therapy
CPT/HCPCS: 64635; 72100; 77002; J0360; J1030; J2001